=== PATIENT | female | born 1960 | race Caucasian/White ===

== ENCOUNTER 2019-06-02 16:44 | Emergency (ER) | payer OTHER ==
[~2019-06-02] VITALS: Ht 157.5 cm; Wt 68.0 kg
[~2019-06-02 16:44] MED LIST: ADVAIR HFA115 MCG/21 INH; ALBUTEROL2.5 MG/0.1 INH; ALBUTEROL2.5 MG/0.5 INH; AMBIEN 5 MG TABL5 M1 PO; ASPIR-LOW81 MG PO; ASPIRIN325; BACLOFEN20 MG PO; CIPROFLOXACIN750 MG PO; CLONAZEPAM 1 MG1 M1 PO; DUONEB 2.5-0.5 M3 ML INH; FLEXERIL PO; HYDROCODON-ACE1 EAC7 PO; HYDROCODONE-AP1 EAC6 PO; HYDROCODONE-APA1 TA1 PO; IBUPROFEN 800800 M1 PO; NAPROSYN500 M1 PO; NICOTINE TRANSD21 M1 TRANSDERM; NORCO 5-325 TA1 EACH PO; NUEDEXTA 20-101 EACH; PREDNISONE 1 MG1 M1 PO; PREDNISONE 5 MG5 M1 PO; PULMICORT0.5 MG/22 INH; SIMVASTATIN20 MG PO
[2019-06-02 17:19] LABS: ABSOLUTE BASOPHILS 0.1 thou/uL (0.0-0.2); ABSOLUTE LYMPHOCYTES 3.2 thou/uL (0.8-5.3); ABSOLUTE MONOCYTES 0.6 thou/uL (0.0-1.2); ABSOLUTE NEUTROPHILS 4.3 thou/uL (1.6-8.1); BASOPHILS 0.9 %; EOSINOPHILS 0.3 %; HEMATOCRIT 45.8 % (37.0-47.0); HEMOGLOBIN 15.6 gm/dL (12.0-15.0); LYMPHOCYTES 39.1 %; MCH 31.4 pg (26.0-34.0); MCHC 34.1 g/dL (28.0-37.0); MCV 92.1 fL (80.0-100.0); MONOCYTES 7.4 %; NUCLEATED RBCS 0 /100WBC; PLATELET COUNT* 241 thou/uL (150-400); POLYS 52.3 %; RBC 4.98 mil/uL (4.20-5.00); RDW-CV 13.1 % (10.5-14.5); WBC 8.3 thou/uL (4.0-11.0)
[2019-06-02 17:33] LABS: CALCIUM 9.9 mg/dL (8.5-10.1); CREATININE 0.6 mg/dL (0.6-1.3); POTASSIUM 4.1 mmol/L (3.5-5.1)
[2019-06-02 17:43] LABS: MAGNESIUM 2.1 mg/dL (1.8-2.4); TOTAL BILIRUBIN 0.5 mg/dL (<0.1-1.0)
[2019-06-02] MEDS ORDERED: IBUPROFEN 800800 M1 PO (18:10)
[2019-06-02 18:26] VITALS: BP 121/89
--- NOTE | 2019-06-05 10:40 | EKG ---
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: : 1960 Requested By: Cristopher Corral Order Number: [id number] MD: Maksim Flores Measurements Intervals [place] Rate: 72 P: 75 ME: 158 QRS: 78 QRSD: 92 T: 79 QT: 402 QTc: 440 Interpretive Statements Sinus rhythm Borderline T wave abnormalities Compared to ECG 07/15/2015 16:10:31 T-wave abnormality now present Sinus arrhythmia no longer present Electronically Signed On 06-05-2019 10:39:48 [employer] by Maksim Flores [email or web address] <ELECTRONICALLY SIGNED> By: Maksim Flores MD, [facility] 06/05/19 [id number] Maksim Flores MD, FACC /EPI
== END 2019-06-02 18:26 ==
LOC: M.ERS 16:44
PROVIDERS: Emergency Medicine Emergency Medical Services
DX: R09.1 Pleurisy (principal); R07.89 Other chest pain; J45.909 Unspecified asthma, uncomplicated; F17.210 Nicotine dependence, cigarettes, uncomplicated; Z86.73 Personal history of transient ischemic attack (TIA), and cerebral infarction without residual deficits